=== PATIENT | female | born 1945 | race Caucasian/White ===

== ENCOUNTER 2021-05-10 07:55 | Outpatient (CLI) | payer MEDICARE, SELFPAY ==
--- NOTE | ~2021-05-10 | MM_ITS ---
EXAMINATION: MM screening saeid BI w jaimee HISTORY: Screening TECHNIQUE: Craniocaudal and mediolateral oblique 3-D tomosynthesis images were obtained and synthetic 2-D images were generated. CAD analysis was submitted and interpreted. COMPARISON: Comparison to multiple prior studies sequentially, with oldest reviewed study dated 11/20. BREAST PARENCHYMAL COMPOSITION: There are scattered areas of fibroglandular density. FINDINGS: There is no evidence of suspicious mass, calcification, or architectural distortion to sugg est malignancy in either breast. There has been no suspicious interval change. IMPRESSION: 1. No mammographic evidence of malignancy. 2. Recommend routine screening mammography in one year. BI-RADS Category 1: Negative Reviewed, dictated and finalized at location A.
--- NOTE | ~2021-05-10 | DEXA_ITS ---
Bone Density Report Name: Jacque Echeverria Age: 75 Sex: Female Ethnicity: White Date of : 1945 Indication: postmenopausal osteoporosis; height loss; cancer; Referring Provider: DONALDO BOWMAN Study: Bone densitometry was performed. Exam Date: May 10, 2021 Accession number: [id number] Bone Density: Region BMD T-score Z-score Classification AP Spine (L1, L2, L3) 0.815 -1.8 0.4 Osteopenia Femoral Neck (Left) 0.541 -2.8 -0.8 Osteoporosis Total Hip (Left) 0.721 -1.8 -0.1 Osteopenia Total Hip Bilateral Avg 0.706 -1.9 -0.3 Osteopenia Femoral Neck (Right) 0.489 -3.2 -1.3 Osteoporosis Total Hip (Right) 0.690 -2.1 -0.4 Osteopenia World Health Organization criteria for BMD impression classify patients as: Normal (T-score at or above -1.0), Osteopenia (T-score between -1.0 and -2.5), or Osteoporosis (T-score at or below -2.5). 10-year Fracture Risk: FRAX not reported because: Some T-score for Spine Total or Hip Total or Femoral Neck at or below -2.5 Previous Exams: Region Exam Age BMD T-score BMD Change BMD Change Date g/cm2 vs Baseline vs Previous AP Spine(L1, L2, L3) 05/10/2021 75 0.815 -1.8 0.136(20.1%)# 0.077(10.5%)* 12/12/2015 70 0.738 -2.5 0.059(8.7%)# 0.107(16.9%)# 12/08/2009 64 0.631 -3.5 -0.047(-7.0%)* -0.047(-7.0%)* 10/10/2004 58 0.679 -3.1 Total Hip(Left) 05/10/2021 75 0.721 -1.8 -0.107(-12.9%) -0.066(-8.4%)* 12/12/2015 70 0.787 -1.3 -0.040(-4.9%)# 0.003(0.4%)# 12/08/2009 64 0.784 -1.3 -0.044(-5.3%)* -0.044(-5.3%)* 10/10/2004 58 0.828 -0.9 Total Hip(Right) 05/10/2021 75 0.690 -2.1 -0.131(-16.0%) -0.078(-10.2%) 12/12/2015 70 0.769 -1.4 -0.053(-6.4%)# 0.014(1.9%)# 12/08/2009 64 0.755 -1.5 -0.067(-8.2%)* -0.067(-8.2%)* 10/10/2004 58 0.822 -1.0 *Denotes significance at 95% confidence level, LSC for AP Spine = 0.022 g/cm2, LSC for Total Hip = 0.027 g/cm2 Clinical Information Provided by Patient: Has used the following medications: Vitamin D, Calcium Has the following medical conditions: Cancer Patient maximum height was 62.5 Menopause Age: 50 No regular weight bearing exercise Does not regularly consume dairy products Drinks caffeinated beverages Onset of menses at age 13 Number of children 2 Impression: The patient has osteoporosis, based on the Right Femoral Neck T-score. The BMD for the Total Hip(Left) decreased, changing by -8.4% since the last DXA exam. The B
== END 2021-05-10 07:56 | disposition home or self-care (01) ==
LOC: ANHIMG 07:59
PROVIDERS: PCP Family Medicine; Visit Provider Family Medicine
DX: Z12.31 Encounter for screening mammogram for malignant neoplasm of breast (principal); Z78.0 Asymptomatic menopausal state; M81.0 Age-related osteoporosis without current pathological fracture
CPT/HCPCS: 77063; 77067; 77080

== ENCOUNTER 2021-10-19 11:44 | Outpatient (CLI) | payer MEDICARE, SELFPAY ==
--- NOTE | ~2021-10-19 | CT_ITS ---
EXAMINATION:CT lung screening DATE: 10/19/2021 12:19 INDICATION: Personal history of tobacco dependence. Smoker who quit 11 years ago with 30 pack year hi story. TECHNIQUE: Computed tomography (CT) of the chest was performed without intravenous contrast. Automate d exposure control and iterative reconstruction technique were employed. The dose-length product (DLP ) was 95.44 mGy-cm. COMPARISON: CT abdomen 04/18/2008 FINDINGS: There is moderate emphysema. There are widespread peripheral septal thickening, likely overhead door technician sony. No pleural effusion. The heart size is normal. There are coronary artery calcifications. No iris cardial effusion. There are surgical clips around the gastroesophageal junction. Calcifications in th e spleen are consistent with old granulomatous disease. There is severe thoracic spondylosis. There a re multiple chronic vertebral body fractures. IMPRESSION: 1. Lung-RADS category 2: Benign appearance or behavior. Continue annual screening with noncontrast lo w-dose chest CT in 12 months. Reviewed, dictated and finalized at location A. IMPRESSION: 1. Lung-RADS category 2: Benign appearance or behavior. Continue annual screeni ng with noncontrast low-dose chest CT in 12 months.
== END 2021-10-19 11:45 | disposition home or self-care (01) ==
PROVIDERS: PCP Family Medicine; Visit Provider Family Medicine
DX: Z12.2 Encounter for screening for malignant neoplasm of respiratory organs (principal); Z87.891 Personal history of nicotine dependence
CPT/HCPCS: 71271

== ENCOUNTER 2022-10-08 10:37 | Outpatient (CLI) | payer MEDICARE, SELFPAY ==
[2022-10-08 10:48] LABS: Basophils Absolute Auto 0.1 K/mm3 (0.0-0.1); Basophils Percent Auto 1.2 % (0.2-1.2); Eosinophils Absolute Auto 0.1 K/mm3 (0-0.3); Eosinophils Percent Auto 1.9 % (0-4.4); Hematocrit 38.4 % (37.0-47.0); Hemoglobin 12.7 g/dL (12.0-15.0); Immature Granulocyte Absolute 0.03 K/mm3 (0.00-0.031); Immature Granulocyte Percent A 0.5 % (0-0.5); Lymphocytes Absolute Auto 1.14 K/mm3 (0.9-3.2); Lymphocytes Percent Auto 19.7 % (18.3-44.2); Mean Corpuscular HGB Conc 33.1 g/dl (32-36); Mean Corpuscular Hemoglobin 29.1 pg (26-34); Mean Corpuscular Volume 87.9 fl (80-100); Mean Platelet Volume 8.7 fl (7.4-10.4); Monocytes Absolute Auto 0.3 K/mm3 (0.1-0.6); Monocytes Percent Auto 4.5 % (2.6-8.5); Neutrophils Absolute Auto 4.2 K/mm3 (1.3-6.7); Neutrophils Percent Auto 72.2 % (45.5-73.1); Platelet Count Result 428 k/mm3 (150-375); Red Blood Count 4.37 M/mm3 (4.2-5.4); Red Cell Distribution Width 13.2 % (11.5-14.5); White Blood Count 5.8 K/mm3 (4.5-10.0)
== END 2022-10-08 10:38 | disposition home or self-care (01) ==
PROVIDERS: PCP Family Medicine; Visit Provider Nurse Practitioner Gerontology
DX: D75.839 Thrombocytosis, unspecified (principal)
CPT/HCPCS: 36415; 85025

== ENCOUNTER 2023-04-07 07:15 | Outpatient (CLI) | payer MEDICARE, SELFPAY ==
[2023-04-07 07:40] LABS: Basophils Absolute Auto 0.1 K/mm3 (0.0-0.1); Basophils Percent Auto 2.1 % (0.2-1.2); Eosinophils Absolute Auto 0.1 K/mm3 (0-0.3); Hematocrit 35.9 % (37.0-47.0); Hemoglobin 11.9 g/dL (12.0-15.0); Immature Granulocyte Absolute 0.02 K/mm3 (0.00-0.031); Immature Granulocyte Percent A 0.5 % (0-0.5); Lymphocytes Absolute Auto 1.07 K/mm3 (0.9-3.2); Lymphocytes Percent Auto 24.5 % (18.3-44.2); Mean Corpuscular HGB Conc 33.1 g/dl (32-36); Mean Corpuscular Hemoglobin 29.9 pg (26-34); Mean Corpuscular Volume 90.2 fl (80-100); Mean Platelet Volume 8.6 fl (7.4-10.4); Monocytes Absolute Auto 0.5 K/mm3 (0.1-0.6); Monocytes Percent Auto 10.5 % (2.6-8.5); Neutrophils Absolute Auto 2.6 K/mm3 (1.3-6.7); Neutrophils Percent Auto 59.4 % (45.5-73.1); Platelet Count Result 425 k/mm3 (150-375); Red Blood Count 3.98 M/mm3 (4.2-5.4); Red Cell Distribution Width 12.7 % (11.5-14.5); White Blood Count 4.4 K/mm3 (4.5-10.0)
[2023-04-07 07:51] LABS: Alanine Aminotransferase 16 U/L (6-35); Albumin Level 3.9 g/dL (3.5-5.1); Alkaline Phosphatase 43 U/L (38-126); Anion Gap 9 mmol/L (8-16); Aspartate Amino Transferase 28 U/L (14-36); Bilirubin,Total 0.4 mg/dL (0.2-1.3); Blood Urea Nitrogen 14 mg/dL (7-17); Calcium 8.6 mg/dL (8.4-10.2); Carbon Dioxide 28 mmol/L (22-30); Chloride 93 mmol/L (98-107); Cholesterol 188 mg/dL (0-200); Estimated Glomerular Filt Rate > 60; Glucose 99 mg/dL (65-110); HDL Direct 72 mg/dL; Potassium 4.2 mmol/L (3.4-5.0); Sodium 130 mmol/L (137-145); Triglycerides 67 mg/dL (<150)
[2023-04-07 08:00] LABS: Hemoglobin A1C 5.8 % (<5.7)
[2023-04-07 08:02] LABS: LDL Cholesterol Direct 85 mg/dL
== END 2023-04-07 07:16 | disposition home or self-care (01) ==
LOC: ANHLAB 07:16
PROVIDERS: PCP Family Medicine; Visit Provider Physician Assistant
DX: I25.10 Atherosclerotic heart disease of native coronary artery without angina pectoris (principal); I70.0 Atherosclerosis of aorta; E11.9 Type 2 diabetes mellitus without complications; E03.9 Hypothyroidism, unspecified; D75.839 Thrombocytosis, unspecified
CPT/HCPCS: 36415; 80053; 80061; 83036; 84443; 85025

== ENCOUNTER 2023-07-17 15:36 | Emergency (ER) | payer MEDICARE, SELFPAY ==
[2023-07-17 15:51] VITALS: BP 120/61; PULSE 102; RESP 18; TEMP 36.6; O2SAT 99
--- NOTE | 2023-07-17 16:06 | ED.EAR ---
HPI - Ear Problem General Chief complaint: Ear Stated complaint: fever,headache,painful right ear Time Seen by Provider: 07/17/23 16:06 Source: patient Mode of arrival: ambulatory Limitations: no limitations History of Present Illness HPI Narrative: 77-year-old female presents with complaint of right ear pain for 2 days. Reports that pain is intermittent like shocks of electricity . Patient reports congestion, cough, runny nose for 4 days. Afebrile. No chest pain or shortness of breath. Patient taking Zyrtec to treat symptoms. All systems reviewed and negative except as noted above. Related Data Allergies Allergy/AdvReac Type Severity Reaction Status Date / Time Hhyendj-CEO-QoF Reductase Allergy Unknown myalgia Verified 07/17/23 16:13 Inhibitor [Sxgpqre-Enl-Mmh Reductase Inhibitor] Review of Systems Review of Systems: CONSTITUTIONAL: Denies fever, chills, or sweats. EYES: Denies visual changes, redness, or discharge. ENT: Reports rhinorrhea, congestion,, right ear pain. Denies sore throat CARDIOVASCULAR: Denies chest pain, palpitations, or edema. RESPIRATORY: Denies cough or dyspnea. GASTROINTESTINAL: Denies abdominal pain, nausea, vomiting, or diarrhea. GENITOURINARY: Denies dysuria or hematuria. SKIN: Denies rash or itching. MUSCULOSKELETAL: Denies back pain, joint pain, or myalgia. NEUROLOGIC: Denies headache, numbness, or weakness. PSYCHIATRIC: Denies anxiety or depression. All other systems reviewed are negative, except as documented in HPI. [facility] Past Medical History Medical History Abdominal aortic atherosclerosis Acute non-recurrent maxillary sinusitis Acute pain Adult hypothyroidism Age-related osteoporosis without current pathological fracture Atypical chest pain Benign paroxysmal positional vertigo Benign reactive hypertension Breast cancer screening Chronic right shoulder pain Controlled diabetes mellitus type II without complication Eczema of both hands Essential (primary) hypertension Familial hyperlipoproteinemia type IIb PIEDAD (generalized anxiety disorder) Hypothyroidism, unspecified Infected abrasion of great toe of right foot Left sided sciatica Low back pain Lumbar spondylosis Mixed hyperlipidemia Nicotine dependence, unspecified, in remission Nicotine dependence, unspecified, uncomplicated Osteoporosis Personal history of tobacco use Postmenopausal Psoriasis Sprain of right wrist Thoracic aorta atherosclerosis Type 2 diabetes mellitus without complications Family History Family History Mother Family history of chronic obstructive pulmonary disease, Onset Age: 80 Patient's mother is Father Family history of malignant neoplasm of esophagus, Onset Age: 75 Patient's father is Social History Social History Social History: Smoking packs per day: 1 Smoking cigarettes per day: 20.0 Smoking status: Former smoker Tobacco type: cigarettes Second hand tobacco smoke exposure: No Smoking end date: 08/10/10 Alcohol intake: current Alcohol use details: Rarely Substance use: never Substance use type: does not use Lack of Transportation: No Lack of Food: Never True Current Housing: I Have Housing Concerned About Future Housing: No Difficulty Paying Gas/Electric Bills: No Difficulty Paying for Meds: No Currently Unemployed: YES Education: Decline to Answer Difficulty w/ Childcare or Family Care: No Living arrangements: with family Occupation/Education: retired Gender identity (if verbalized by the patient): Female Sexual Orientation (if Verbalized by the Patient): Straight or Heterosexual Comments At time of signature, agree with nursing past medical, surgical, social and family history. There is no re
== END 2023-07-17 16:22 | disposition home or self-care (01) ==
PROVIDERS: Emergency Provider Nurse Practitioner Family; PCP Family Medicine
DX: J06.9 Acute upper respiratory infection, unspecified (principal); H65.01 Acute serous otitis media, right ear; I10 Essential (primary) hypertension; E11.9 Type 2 diabetes mellitus without complications; E03.9 Hypothyroidism, unspecified; E78.2 Mixed hyperlipidemia; Z87.891 Personal history of nicotine dependence
CPT/HCPCS: 99213; G0463

== ENCOUNTER 2023-09-04 06:55 | Outpatient (CLI) | payer MEDICARE, SELFPAY ==
[2023-09-04 07:20] LABS: Basophils Absolute Auto 0.1 K/mm3 (0.0-0.1); Basophils Percent Auto 1.8 % (0.2-1.2); Eosinophils Absolute Auto 0.2 K/mm3 (0-0.3); Hematocrit 37.4 % (37.0-47.0); Hemoglobin 12.6 g/dL (12.0-15.0); Immature Granulocyte Absolute 0.01 K/mm3 (0.00-0.031); Immature Granulocyte Percent A 0.2 % (0-0.5); Lymphocytes Absolute Auto 1.02 K/mm3 (0.9-3.2); Lymphocytes Percent Auto 20.5 % (18.3-44.2); Mean Corpuscular HGB Conc 33.7 g/dl (32-36); Mean Corpuscular Hemoglobin 30.7 pg (26-34); Mean Corpuscular Volume 91.2 fl (80-100); Mean Platelet Volume 8.8 fl (7.4-10.4); Monocytes Absolute Auto 0.4 K/mm3 (0.1-0.6); Monocytes Percent Auto 7.8 % (2.6-8.5); Neutrophils Absolute Auto 3.3 K/mm3 (1.3-6.7); Neutrophils Percent Auto 66.7 % (45.5-73.1); Platelet Count Result 445 k/mm3 (150-375)
[2023-09-04 07:31] LABS: Alanine Aminotransferase 14 U/L (6-35); Albumin Level 3.9 g/dL (3.5-5.1); Alkaline Phosphatase 44 U/L (38-126); Anion Gap 6 mmol/L (8-16); Aspartate Amino Transferase 27 U/L (14-36); Bilirubin,Total 0.6 mg/dL (0.2-1.3); Blood Urea Nitrogen 16 mg/dL (7-17); Calcium 9.9 mg/dL (8.4-10.2); Carbon Dioxide 28 mmol/L (22-30); Chloride 102 mmol/L (98-107); Estimated Glomerular Filt Rate > 60; Glucose 110 mg/dL (65-110); Sodium 136 mmol/L (137-145)
[2023-09-04 08:40] LABS: Free T4 Free Thyroxine Reflex 1.33 ng/dL (0.78-2.19)
[2023-09-04 09:33] LABS: Total Triiodothyronine (T3) 0.89 NG/ML (0.97-1.69)
== END 2023-09-04 06:56 | disposition home or self-care (01) ==
LOC: ANHLAB 06:59
PROVIDERS: PCP Family Medicine; Visit Provider Physician Assistant
DX: D64.9 Anemia, unspecified (principal); E03.9 Hypothyroidism, unspecified; E87.1 Hypo-osmolality and hyponatremia
CPT/HCPCS: 36415; 80053; 84439; 84443; 84480; 85025

== ENCOUNTER 2023-10-08 08:49 | Outpatient (CLI) | payer MEDICARE, SELFPAY ==
--- NOTE | ~2023-10-08 | XR_ITS ---
Clinical Indication: Cough PA and lateral views of the chest: Comparison: 01/26/2019 Findings: There is focal area of haziness in the right upper lobe.. Cardiomediastinal silhouette is within normal limits. Bones and soft tissues are unremarkable. Impression: Focal hazy airspace disease right upper lobe, which could reflect pneumonia. Reviewed, dictated and finalized at location . COORDINATOR Impression: Focal hazy airspace disease right upper lobe, which could reflect pneumonia.
== END 2023-10-08 08:50 | disposition home or self-care (01) ==
PROVIDERS: PCP Family Medicine; Visit Provider Family Medicine
DX: R05.9 Cough, unspecified (principal); R91.8 Other nonspecific abnormal finding of lung field
CPT/HCPCS: 71046

== ENCOUNTER 2023-11-24 10:55 | Outpatient (CLI) | payer MEDICARE, SELFPAY ==
[2023-11-24 12:06] LABS: Free T4 Free Thyroxine 1.64 ng/mL (0.78-2.19)
== END 2023-11-24 10:56 | disposition home or self-care (01) ==
LOC: ANHLAB 11:00
PROVIDERS: PCP Family Medicine; Visit Provider Physician Assistant
DX: E07.9 Disorder of thyroid, unspecified (principal)
CPT/HCPCS: 36415; 84439; 84443

== ENCOUNTER 2024-02-19 12:30 | Outpatient (RCR) | payer MEDICARE, SELFPAY ==
--- NOTE | 2024-01-18 17:28 | OPREHPOC ---
Outpatient Therapy Plan of Care This is a Multidisciplinary Plan of Care that may contain components documented by all disciplines (PT, OT, and ST.) PT Problem 1 PT Problem #1 Knowledge Deficit PT Goal 1 Goal Pt will demo HEPs to improve posture, core and back, BLE strength, lumbar stabilizations independently. Target Visit 10 PT Problem 2 PT Problem #2 Impaired Balance PT Goal 1 Goal Pt will demo Tinetti Assessment score of 21/28 and BAKER balance test of 42/56 or more to reduce risk for falls. Target Visit 10 PT Goal 2 Goal Pt will demo 5x STS within 15 sec or less indicating improved balance and strength and safe indep ambulation. PT Problem 3 PT Problem #3 Impaired Vestibular Syste PT Goal 1 Goal Pt will report significant reduction in symptoms of dizziness with head movements Target Visit 10 PT Problem 4 PT Problem #4 Impaired Strength PT Goal 1 Goal Pt will demo 5/5 strength to BLEs, 4/5 abdominal and back strength
--- NOTE | 2024-01-18 17:28 | PTOPEVAL1 ---
Assessment and note entered by Gely Whiting, PT Evaluation Information Assessment Status Evaluation Diagnosis abnormalities of gait and mobility Onset gradual, chronic Therapy Considerations pain, weakness, hypomobility, balance and vestibular weakness symptoms Subjective Information Pt reports have been having chronic back pains and sciatic pain L > R; states pain increases with prolonged standing position, sitting does not bother her. Uses heat to relieve the pain, lying in supine position. Reports feeling dizzy when turning around in [place] and turning head, light- headedness with sudden or quick changes in position. Pt states has been doing more due to patient's husbands worsening dementia. Reported Pain Level Pain Score 4: Self Report Assessment PT Clinical Summary Pt presents with weakness, joint mobility deficits , balance deficits, gait impairments and vestibular weakness with positive R Head Thrust Maneuver test; pt reports symptoms consistent with Orthostatic Hypotension, however does not demonstrate significant fluctuations of BP measurements at this time. She will greatly benefit from skilled PT to improve general strength and reduce risk for falls. Plan of Care Interventions Gait Training,Manual Therapy,Neuro Re-education, Patient/Caregiver Educati,Therapeutic Activities, Therapeutic Exercise,Other Other Interventions vestibular rehab PT Services Indicated Yes Treatment Frequency and 3x/wk x 10 visits Duration These treatments will address the objective and functional deficits as defined above. The patient will be advanced safely and appropriately in order for the patient to progress towards his/her prior level of function. Additional exercises will be introduced and as well as a comprehensive home exercise program upon discharge, if needed, ?to ensure carryover of functional gains achieved in the clinic. This treatment plan has been reviewed and agreement upon by the patient.
--- NOTE | 2024-01-29 11:45 | PCPTNOTE ---
Pt NS due to forgetting appt.
--- NOTE | 2024-02-19 13:07 | PTOPDC ---
Assessment and note entered by Leilani Prince, PT Discharge Report Assessment Status Discharge Diagnosis abnormalities of gait and mobility Onset gradual, chronic Subjective Information since coming for therapy, am not as dizzy, but do have some dizzy spells; usually have dizziness when tired; walking better- able to make it through the store easier and faster; doing the exercises at home; ready to be done with therapy. Reported Pain Level Pain Score 0: Self Report Assessment PT Clinical Summary Jacque has received 9 PT sessions. Compared to the initial evaluation: she has improved in all areas: LE strength, balance with Mckeon, Tinetti and 5 reps sit/stand are all WNL; dizziness has decreased with only slight symptoms, mostly when tired, at the end of the day; education completed for HEP and safety with dizziness. The goals were achieved. Discharge from PT. She is to continue with her home exercises. Plan of Care PT Services Indicated No
== END 2024-02-19 14:53 | disposition home or self-care (01) ==
LOC: ANHPT 12:30
PROVIDERS: PCP Family Medicine; Visit Provider Family Medicine
DX: R26.89 Other abnormalities of gait and mobility (principal)
CPT/HCPCS: 97110; 97112; 97161; 97530

== ENCOUNTER 2024-11-23 16:26 | Outpatient (CLI) | payer MEDICARE, SELFPAY ==
--- NOTE | ~2024-11-23 | CT_ITS ---
CT Scan of the Chest without Contrast: Clinical Indication: Lung cancer screening, nicotine dependence Technique: Contiguous sections were acquired throughout the chest without intravenous contrast. Dose reduction technique was used on this scan by utilizing automated exposure control and iterative recon struction technique. The dose-length product (DLP) was 77.96 mGy-cm. COMPARISON: 10/19/2021 Findings: There is no evidence of any significant mediastinal, hilar or axillary lymphadenopathy. The mediastin al soft tissues appear normal. There is no evidence of pleural or pericardial effusion. There is advanced emphysema. There are patchy areas of increased chronic interstitial change peripher ally. No discrete pulmonary nodule clearly evident. Images through the upper abdomen reveal no abnormalities. Stable compression fractures of T11, T12, L 1. Impression: Lung RADS 2: Benign appearance 12 month follow-up screening CT advised. Advanced emphysema and worsening chronic interstitial disease. Reviewed, dictated and finalized at [facility]. Impression: Lung RADS 2: Benign appearance 12 month follow-up screening CT advised. Advanced emphysema and worsening chronic interstitial disease.
--- OUTSIDE RECORDS SUMMARY | 2024-11-23 16:55 | XMS_ITS | Clinical Summary ---
Author Organization [facility] Address [address] [place] [address] Care Team Providers Care Geoscience Technician Name Role Phone Unavailable Primary Care Provider Unavailabl e Social History Tobacco Use Types Packs/Day Years Used Date Smoking Tobacco: Never Assessed Comments Unknown Sex and Gender Information Value Date Recorded Sex Assigned at Not on file Legal Sex Female 4:31 PM CDT Gender Identity Not on file Sexual Orientation Not on file Plan of Treatment Health Maintenance Due Date Last Done Comments Hepatitis C 12/03/1965 DTaP, Tdap and Td Vaccines ( 1 - Tdap) 12/03/1966 Zoster Vaccines (1 of 2) 12/03/1997 Dexa Scan (General) 12/03/2012 Pneumococcal Vaccine: 50+ Ye ars (1 of 1 - PCV) 12/03/2012 RSV Immunization or 60+ Years (1 - 1-dose 75+ series) 12/03/2022 COVID-19 Vaccine (2023-2 5 season) 2024 Meningococcal B Vaccine Aged Out No l onger eligible based on patient's age to complete this topic Meningococcal Vaccine Aged Out No sanya rachel eligible based on patient's age to complete this topic RSV Immunizations Under 20 Months Aged Out No longer eligible based on patient's age to complete this topic
--- OUTSIDE RECORDS SUMMARY | 2024-11-23 16:55 | XMS_ITS | Continuity of Care Document ---
Author Organization [facility] [place] [address] [place] [address] [place] [address] Phone Care Team Providers Care Flexo Press Operator Name Role Phone Juma Glasgow Unavailable Unavailable Procedures Procedure Date Eye Exam, New Patient Ophthalmoscopy Advance Directives Directive Yes / No Effective Date File Name No Information Encounters Encounter Description Practice Location Reason(s) For Visit Diagnoses Date Provider Providers Copied on Encounter [facility], [address] [place] [address] [address], [place], [place], [id number], tel:[phone] [facility] No Information Pee Dennison. [address] [place], [address], [place]. tel:[phone] Referring Provider: Juma Frank, [address] [place], [place], [facility]. tel:[phone] Family History Family Member Type Diagnosis Age At Onset No Information Payers Payer name Insurance type Covered libertarian ID Authoriza tion(s) No Information Social History [...]
== END 2024-11-23 16:27 | disposition home or self-care (01) ==
PROVIDERS: PCP Family Medicine; Visit Provider Physician Assistant
DX: Z12.2 Encounter for screening for malignant neoplasm of respiratory organs (principal); Z87.891 Personal history of nicotine dependence
CPT/HCPCS: 71271

== ENCOUNTER 2024-12-05 06:36 | Outpatient (CLI) | payer MEDICARE, SELFPAY ==
--- OUTSIDE RECORDS SUMMARY | 2024-12-05 06:40 | XMS_ITS | Clinical Summary ---
Author Organization [facility] Address [address] [place] [address] Care Team Providers Care Commercial Pest Control Representative Name Role Phone Unavailable Primary Care Provider [...] Td Vaccines ( 1 - Tdap) 12/03/1966 Pneumococcal Vaccine: 50+ Ye ars (1 of 1 - PCV) 12/03/1997 Zoster Vaccines (1 of 2) 12/03/1997 Dexa Scan (General) 12/03/2012 RSV Immunization or 60+ Years (1 [...]
--- OUTSIDE RECORDS SUMMARY | 2024-12-05 06:40 | XMS_ITS | Continuity of Care Document ---
Author Organization [facility] Address [address] [place] [address] [place] [address] Phone Care Team Providers Care Well Puller Head Name Role Phone Juma Glasgow Unavailable Unavailable Procedures Procedure Date Eye Exam, New Patient Ophthalmoscopy Advance Directives Directive Yes / No Effective Date File Name No Information Encounters Encounter Description Practice Location Reason(s) For Visit Diagnoses Date Provider Providers Copied on Encounter [facility], [address] [place] [address] [address], [place], [place], [id number], tel:[phone] [facility] No Information Pee Dennison. [address] [place], [address], [place]. tel:[phone] Referring Provider: Juma Frank, [address] [place], [place], [facility]. tel:[phone] Family History Family Member Type Diagnosis Age At Onset No Information Payers Payer name Insurance type Covered democrat ID Authoriza tion(s) No Information Social History [...]
[2024-12-05 07:52] LABS: Hematocrit 33.9 % (37.0-47.0); Hemoglobin 11.1 g/dL (12.0-15.0); Mean Corpuscular HGB Conc 32.7 g/dl (32-36); Mean Corpuscular Hemoglobin 29.8 pg (26-34); Mean Corpuscular Volume 90.9 fl (80-100); Mean Platelet Volume 9.5 fl (7.4-10.4); Platelet Count Result 343 k/mm3 (150-375); Red Blood Count 3.73 M/mm3 (4.2-5.4); Red Cell Distribution Width 12.9 % (11.5-14.5); White Blood Count 4.7 K/mm3 (4.5-10.0)
[2024-12-05 08:19] LABS: Alanine Aminotransferase 18 U/L (6-35); Albumin Level 3.8 g/dL (3.5-5.1); Alkaline Phosphatase 57 U/L (38-126); Anion Gap 5 mmol/L (4-12); Aspartate Amino Transferase 31 U/L (14-36); Bilirubin,Total 0.5 mg/dL (0.2-1.3); Blood Urea Nitrogen 13 mg/dL (7-17); Carbon Dioxide 29 mmol/L (22-30); Chloride 99 mmol/L (98-107); Cholesterol 182 mg/dL (0-200); Estimated Glomerular Filt Rate > 60; Glucose 118 mg/dL (65-110); HDL Direct 84 mg/dL; Potassium 3.6 mmol/L (3.4-5.0); Sodium 133 mmol/L (137-145); Triglycerides 52 mg/dL (<150)
[2024-12-05 08:32] LABS: LDL Cholesterol Direct 67 mg/dL
[2024-12-05 08:40] LABS: Free T4 Free Thyroxine 1.75 ng/dL (0.78-2.19)
[2024-12-05 08:52] LABS: Thyroid Stimulating Hormone 0.024 uIU/mL (0.465-4.680)
== END 2024-12-05 06:37 | disposition home or self-care (01) ==
LOC: ANHLAB 06:38
PROVIDERS: PCP Family Medicine; Visit Provider Physician Assistant
DX: E07.9 Disorder of thyroid, unspecified (principal); D64.9 Anemia, unspecified; E11.9 Type 2 diabetes mellitus without complications; I25.10 Atherosclerotic heart disease of native coronary artery without angina pectoris; E03.9 Hypothyroidism, unspecified; I10 Essential (primary) hypertension
CPT/HCPCS: 36415; 80053; 80061; 83036; 84439; 84443; 85027

== ENCOUNTER 2025-01-25 08:25 | Outpatient (CLI) | payer MEDICARE, SELFPAY ==
--- OUTSIDE RECORDS SUMMARY | 2025-01-25 08:43 | XMS_ITS | Continuity of Care Document ---
Author Organization [facility] Address [address] [place] [address] [place] [address] Phone Care Team Providers Care Spa Manager Name Role Phone Juma Glasgow Unavailable Unavailable Procedures Procedure Date Eye Exam, New Patient Ophthalmoscopy Advance Directives Directive Yes / No Effective Date File Name No Information Encounters Encounter Description Practice Location Reason(s) For Visit Diagnoses Date Provider Providers Copied on Encounter [facility], [address] [place] [address] [address], [place], [place], [id number], tel:[phone] [facility] No Information Pee Dennison. [address] [place], [address], [place]. tel:[phone] Referring Provider: Juma Frank, [address] [place], [place], [facility]. tel:[phone] Family History Family Member Type Diagnosis Age At Onset No Information Payers Payer name Insurance type Covered republican ID Authoriza tion(s) No Information Social History [...]
[2025-01-25 09:57] LABS: Free T4 Free Thyroxine 1.62 ng/dL (0.78-2.19)
[2025-01-25 10:10] LABS: Thyroid Stimulating Hormone 0.022 uIU/mL (0.465-4.680)
== END 2025-01-25 08:26 | disposition home or self-care (01) ==
PROVIDERS: PCP Family Medicine; Visit Provider Student in an Organized Health Care Education/Training Program
DX: E03.9 Hypothyroidism, unspecified (principal)
CPT/HCPCS: 36415; 84439; 84443

== ENCOUNTER 2025-02-07 14:09 | Emergency (ER) | payer MEDICARE, SELFPAY ==
--- NOTE | ~2025-02-07 | XR_ITS ---
Right Knee Technique: AP, lateral, and oblique views were obtained. Clinical History: Pain Findings: No fracture or dislocation is seen. Osseous alignment is anatomic. Joint spaces are preserv ed without degenerative or erosive change. Soft tissues are unremarkable. No joint effusion is seen. Impression: Unremarkable right knee radiographs. Reviewed, dictated and finalized at location . Impression: Unremarkable right knee radiographs.
--- OUTSIDE RECORDS SUMMARY | 2025-02-07 14:14 | XMS_ITS | Clinical Summary ---
Author Organization [facility] Address [address] [place] [address] Care Team Providers Care Fire Battalion Chief Name Role Phone Unavailable Primary Care Provider [...]
--- OUTSIDE RECORDS SUMMARY | 2025-02-07 14:14 | XMS_ITS | Continuity of Care Document ---
Author Organization [facility] [place] [address] [place] [address] [place] [address] Phone Care Team Providers Care Veterinary Laboratory Diagnostician Name Role Phone Juma Glasgow Unavailable Unavailable Procedures Procedure Date Eye Exam, New Patient Ophthalmoscopy Advance Directives Directive Yes / No Effective Date File Name No Information Encounters Encounter Description Practice Location Reason(s) For Visit Diagnoses Date Provider Providers Copied on Encounter [facility], [address] [place] [address] [address], [place], [place], [id number], tel:[phone] [facility] No Information Pee Dennison. [address] [place], [address], [place]. tel:[phone] Referring Provider: Juma Frank, [address] [place], [place], [facility]. tel:[phone] Family History Family Member Type Diagnosis Age [...]
--- OUTSIDE RECORDS SUMMARY | 2025-02-07 14:19 | XMS_ITS | Continuity of Care Document ---
Author Organization [facility] Address [address] [place] [address] [place] [address] Phone Care Team Providers Care Boiling House Oiler Name Role Phone Juma Glasgow Unavailable Unavailable Procedures Procedure Date Eye Exam, New Patient Ophthalmoscopy Advance Directives Directive Yes / No Effective Date File Name No Information Encounters Encounter Description Practice Location Reason(s) For Visit Diagnoses Date Provider Providers Copied on Encounter [facility], [address] [place] [address] [address], [place], [place], [id number], tel:[phone] [facility] No Information Pee Dennison. [address] [place], [address], [place]. tel:[phone] Referring Provider: Juma Frank, [address] [place], [place], [facility]. tel:[phone] Family History Family Member Type Diagnosis Age At Onset No Information Payers Payer name Insurance type Covered constitution party ID Authoriza tion(s) No Information Social [...]
[2025-02-07 14:26] VITALS: BP 127/56; PULSE 85; RESP 16; TEMP 36.5; O2SAT 98
--- NOTE | 2025-02-07 14:40 | ED.GENADULT ---
HPI - General Adult General Chief complaint: Extremity Injury, Lower Stated complaint: Yesterday - fell right knee/leg swollen/pain History of Present Illness HPI narrative: Jacque Echeverria is a 79 y/o female who presents with and daugther with complaints of right knee pain. She explains she was tripped over the dog getting his food yesterday and fell onto her right knee. Denies hitting her head/ no LOC denies hip pain. She was able to get herself back up after the fall. She doesn't usually use a cane but had one at home that she has been using since it is painful to bend and extend her knee. She denies any pain to her knee while she is sitting at rest. Related Data Allergies Allergy/AdvReac Type Severity Reaction Status Date / Time Htttneu-BVU-DwK Reductase Allergy Unknown myalgia Verified 02/07/25 14:12 Inhibitor (Mwrnmxg-Piz-Atd Reductase Inhibitor) Review of Systems Review of Systems: All systems reviewed & are unremarkable except as noted in HPI and below PMFSH Past Medical History Medical History Psoriasis Type 2 diabetes mellitus without complications Thoracic aorta atherosclerosis Sprain of right wrist Postmenopausal Nicotine dependence, unspecified, uncomplicated Nicotine dependence, unspecified, in remission Mixed hyperlipidemia Lumbar spondylosis Low back pain Left sided sciatica Hypothyroidism, unspecified Essential (primary) hypertension Eczema of both hands Chronic right shoulder pain Breast cancer screening Atypical chest pain Age-related osteoporosis without current pathological fracture Acute pain Acute non-recurrent maxillary sinusitis Infected abrasion of great toe of right foot Personal history of tobacco use Benign paroxysmal positional vertigo PIEDAD (generalized anxiety disorder) Adult hypothyroidism Abdominal aortic atherosclerosis Familial hyperlipoproteinemia type IIb Benign reactive hypertension Osteoporosis Controlled diabetes mellitus type II without complication Surgical History Surgical History H/O vagotomy H/O pyloroplasty Family History Family History Mother Family history of chronic obstructive pulmonary disease, Onset Age: 80 Patient's mother is Father Family history of malignant neoplasm of esophagus, Onset Age: 75 Social History Social History Social History: Smoking packs per day: 1 Smoking cigarettes per day: 20.0 Smoking status: Former smoker Tobacco type: cigarettes Second hand tobacco smoke exposure: No Smoking end date: 08/10/10 Alcohol intake: current Alcohol use details: Rarely Substance use: never Substance use type: does not use Do You Feel Safe in your Home?: Yes Lack of Transportation: No Lack of Food: Never True Current Housing: I Have Housing Concerned About Future Housing: No Difficulty Paying Gas/Electric Bills: No Difficulty Paying for Meds: No Currently Unemployed: YES Education: Decline to Answer Difficulty w/ Childcare or Family Care: No Living arrangements: with family Occupation/Education: retired Gender identity (if verbalized by the patient): Female Sexual Orientation (if Verbalized by the Patient): Straight or Heterosexual Exam Narrative: GENERAL: Well-appearing, well-nourished, and in no acute distress. HEAD: Normocephalic, atraumatic. EYES: PERRLA and EOMI. ENT: Nares clear, no rhinorrhea or epistaxis. Mucous membranes moist. Oropharynx without tonsillar hypertrophy exudate or other lesions. Bilateral TMs pearly [place] nonbulging NECK: Supple. No adenopathy or masses. No carotid bruits or JVD CHEST: Clear to auscultation. No respiratory distress. No wheezes rales or rhonchi HEART: Regular rate and rhythm. No murmur heard. Normal peripheral pulses. ABDOMEN: Soft, nontender, nondistended, normal active bowel sounds. EXTREMITIES: Normal range of motion. mild anterior knee swelling/ no obvious deformity / neurovascular intact / no open wounds or lesions NEURO: No focal deficits. Alert and oriented x3. PSYCH: Normal mood and affect. Course Course Level of Care: Express Care Visit Vital Signs Vital signs: Vital Signs Temperature 36.5 C 02/07/25 14:26 Pulse Rate 85 02/07/25 14:26 Respiratory Rate 16 02/07/25 14:26 Blood Pressure 127/56 L 02/07/25 14:26 Pulse Oximetry 98 02/07/25 14:26 Oxygen Delivery Room Air 02/07/25 14:26 Temperature 36.5 C 02/07/25 14:26 Pulse Rate 85 02/07/25 14:26 Respiratory Rate 16 02/07/25 14:26 Blood Pressure 127/56 L 02/07/25 14:26 Pulse Oximetry 98 02/07/25 14:26 Oxygen Delivery Room Air 02/07/25 14:26 Medical Decision Making MDM Narrative Medical decision making narrative: 79 y/o presents with acute right knee pain after a ground level mechanical fall yesterday. No head trauma no LOC No pain to hip / pelvis with palpation Pain with ambulation and flexion of right knee No obvious deformity noted, mild swelling to knee noted Concern for : Fracture/ contusion/ ligament injury plan to check an XR: unremarkable for acute findings Plan to wrap with carmelo wrap, SUERO therapy Close PCP follow up Return precautions Orthopedic referral if needed Medical Records Medical records reviewed: Yes I reviewed the external patient's medical records. Vital Signs Vital Signs: Vital Signs Temperature 36.5 C 02/07/25 14:26 Pulse Rate 85 02/07/25 14:26 Respiratory Rate 16 02/07/25 14:26 Blood Pressure 127/56 L 02/07/25 14:26 Pulse Oximetry 98 02/07/25 14:26 Oxygen Delivery Room Air 02/07/25 14:26 Temperature 36.5 C 02/07/25 14:26 Pulse Rate 85 02/07/25 14:26 Respiratory Rate 16 02/07/25 14:26 Blood Pressure 127/56 L 02/07/25 14:26 Pulse Oximetry 98 02/07/25 14:26 Oxygen Delivery Room Air 02/07/25 14:26 Vitals reviewed by pa Imaging Data Radiologist's impression: Impressions Knee X-Ray 02/07/25 15:13 Impression: Unremarkable right knee radiographs. Discharge Plan Discharge Clinical Impression: Acute knee pain Patient Disposition: Home Condition: Stable Instructions: Antibiotic Form Additional Instructions: Continue to keep knee wrapped Elevate and Ice your knee for comfort you may bear weight as tolerated Follow up with your PCP in 1 week to ensure this is improving IF you have continued pain you may follow up with orthopedics If you develop worsening symptoms/ increased pain/ swelling / unable to bear weight then proceed to the ER Patient Language: Tajik Prescriptions: No Action clobetasol 0.05 % cream 1 applic topical BID Qty: 60 0RF losartan-hydrochlorothiazide 50-12.5 mg tablet See Rx Instructions .ROUTE .COMPLEX Qty: 90 1RF Dose Instruction: TAKE 1 TABLET BY MOUTH DAILY Rx Instructions: TAKE 1 TABLET BY MOUTH DAILY alendronate 70 mg tablet See Rx Instructions .ROUTE .COMPLEX Qty: 12 2RF Dose Instruction: TAKE 1 TABLET BY MOUTH 1 TIME A WEEK DIRECTED Rx Instructions: TAKE 1 TABLET BY MOUTH 1 TIME A WEEK DIRECTED escitalopram oxalate 10 mg tablet See Rx Instructions .ROUTE .COMPLEX Qty: 90 1RF Dose Instruction: TAKE 1 TABLET BY MOUTH DAILY Rx Instructions: TAKE 1 TABLET BY MOUTH DAILY Trelegy Ellipta 100-62.5-25 mcg blister with device 1 inh inhalation DAILY Qty: 60 1RF metoprolol tartrate 25 mg tablet See Rx Instructions .ROUTE .COMPLEX Qty: 180 1RF Dose Instruction: TAKE 1 TABLET BY MOUTH TWICE DAILY Rx Instructions: TAKE 1 TABLET BY MOUTH TWICE DAILY levothyroxine 25 mcg tablet See Rx Instructions .ROUTE .COMPLEX Qty: 90 2RF Dose Instruction: TAKE 1 TABLET BY MOUTH DAILY Rx Instructions: TAKE 1 TABLET BY MOUTH DAILY fenofibrate 160 mg tablet 160 mg PO DAILY Qty: 90 0RF Follow-up/Referrals: Florentino Carrillo MD [Physician] - PHYSICIAN,SUPERVISOR [employer] [Primary Care Provider] - Time of Disposition: 15:18
== END 2025-02-07 15:23 | disposition home or self-care (01) ==
PROVIDERS: Emergency Provider Nurse Practitioner Family
DX: M25.561 Pain in right knee (principal); Z87.891 Personal history of nicotine dependence; E11.9 Type 2 diabetes mellitus without complications; E78.2 Mixed hyperlipidemia; E03.9 Hypothyroidism, unspecified; I10 Essential (primary) hypertension; M81.0 Age-related osteoporosis without current pathological fracture; I70.0 Atherosclerosis of aorta; F41.1 Generalized anxiety disorder
CPT/HCPCS: 73564; 99213; G0463

== ENCOUNTER 2025-03-08 16:01 | Outpatient (CLI) | payer MEDICARE, SELFPAY ==
--- OUTSIDE RECORDS SUMMARY | 2025-03-08 16:05 | XMS_ITS | Clinical Summary ---
Author Organization [facility] Address [address] [place] [id number] Care Team Providers Care Manager Lvn Name Role Phone Unavailable Primary Care Provider [...]
--- OUTSIDE RECORDS SUMMARY | 2025-03-08 16:05 | XMS_ITS | Continuity of Care Document ---
Author Organization [facility] Address [address] [place] [address] [place] [address] Phone Care Team Providers Care Transmission Calibration Engineer Name Role Phone Juma Glasgow Unavailable Unavailable Procedures Procedure Date Eye Exam, New Patient Ophthalmoscopy Advance Directives Directive Yes / No Effective Date File Name No Information Encounters Encounter Description Practice Location Reason(s) For Visit Diagnoses Date Provider Providers Copied on Encounter [facility], [address] [place] [address] [address], [place], [place], [id number], tel:[phone] [facility] No Information Pee Dennison. [address] [place], [address], [place]. tel:[phone] Referring Provider: Juma Frank, [address] [place], [place], [facility]. tel:[phone] Family History Family Member Type Diagnosis Age At Onset No Information Payers Payer name Insurance type Covered alliance party ID Authoriza tion(s) No Information Social [...]
[2025-03-08 18:13] LABS: Free T4 Free Thyroxine 0.43 ng/dL (0.78-2.19)
[2025-03-08 18:23] LABS: Thyroid Stimulating Hormone 11.200 uIU/mL (0.465-4.680)
== END 2025-03-08 16:02 | disposition home or self-care (01) ==
PROVIDERS: PCP Family Medicine; Visit Provider Student in an Organized Health Care Education/Training Program
DX: E03.9 Hypothyroidism, unspecified (principal)
CPT/HCPCS: 36415; 84439; 84443

== ENCOUNTER 2025-05-10 13:30 | Outpatient (CLI) | payer MEDICARE, SELFPAY ==
--- OUTSIDE RECORDS SUMMARY | 2008-12-04 08:15 | XMS_ITS | Continuity of Care Document ---
Author Organization [facility] Address [address] [place] [address] [place] [address] Phone Care Team Providers Care Wildland Fire Fighter Specialist Name Role Phone Juma Glasgow Unavailable Unavailable Procedures Procedure Date Eye Exam, New Patient Ophthalmoscopy Advance Directives Directive Yes / No Effective Date File Name No Information Encounters Encounter Description Practice Location Reason(s) For Visit Diagnoses Date Provider Providers Copied on Encounter [facility], [address] [place] [address] [address], [place], [place], [id number], tel:[phone] [facility] No Information Pee Dennison. [address] [place], [address], [place]. tel:[phone] Referring Provider: Juma Frank, [address] [place], [place], [facility]. tel:[phone] Family History Family Member Type Diagnosis Age At Onset No Information Payers Payer name Insurance type Covered green party ID Authoriza tion(s) No Information Social History Type Description Quantity Date Captured Comments Sex Female Smoking Status No Information Chief Complaint And Reason For Visit No Information Reason For Referral Reason For Referral No Information History Of Present Illness Encounter Date Complaint History Of Prese nt Illness No Information Functional Status Date Functional Assessmen t No Information Instructions Date Instruction Additional Infor mation No Information Assessments Type Assessment Date No Information Patient Care Teams Name Effective Dates (start - stop) Status Members No Information
--- OUTSIDE RECORDS SUMMARY | 2025-05-10 13:33 | XMS_ITS | Clinical Summary ---
Author Organization [facility] Address [address] [place] [id number] Care Team Providers Care Framing Manager Name Role Phone Unavailable Primary Care Provider [...] series) 12/03/2022 COVID-19 Vaccine (2023-2 5 season) 2025 Meningococcal B Vaccine Aged Out No l onger eligible based on patient's age to complete this topic Meningococcal Vaccine Aged Out No sanya rachel eligible based on patient's age to complete this topic RSV Immunizations Under 20 Months Aged Out No longer eligible based on patient's age to complete this topic
[2025-05-10 15:39] LABS: Free T4 Free Thyroxine 0.47 ng/dL (0.78-2.19)
[2025-05-10 16:09] LABS: Thyroid Stimulating Hormone > 100.000 uIU/mL (0.465-4.680)
== END 2025-05-10 13:31 | disposition home or self-care (01) ==
PROVIDERS: PCP Family Medicine; Visit Provider Student in an Organized Health Care Education/Training Program
DX: E03.9 Hypothyroidism, unspecified (principal)
CPT/HCPCS: 36415; 84439; 84443

== ENCOUNTER 2025-07-22 11:15 | Outpatient (CLI) | payer MEDICARE, SELFPAY ==
--- OUTSIDE RECORDS SUMMARY | 2025-07-22 11:20 | XMS_ITS | Clinical Summary ---
Author Organization [facility] Address [address] [place] [id number] Care Team Providers Care Cube Cutter Name Role Phone Unavailable Primary Care Provider [...] - 1-dose 75+ series) 12/03/2022 COVID-19 Vaccine (2024-2 6 season) 2025 Influenza Adult (#1) 2025 Hepatitis A Vaccines Aged Out No long er eligible based on patient's age to complete this topic Meningococcal B Vaccine Aged Out No l onger eligible based on patient's age to complete this topic Meningococcal Vaccine Aged Out No sanya rachel eligible based on patient's age to complete this topic RSV Immunizations Under 20 Months Aged Out No longer eligible based on patient's age to complete this topic
[2025-07-22 12:08] LABS: Free T3 2.24 pg/mL (2.45-5.93)
[2025-07-22 12:21] LABS: Thyroid Stimulating Hormone 42.200 uIU/mL (0.465-4.680)
[2025-07-22 16:57] LABS: Free T4 Free Thyroxine 0.84 ng/dL (0.78-2.19)
== END 2025-07-22 11:16 | disposition home or self-care (01) ==
PROVIDERS: PCP Family Medicine; Visit Provider Family Medicine
DX: E03.9 Hypothyroidism, unspecified (principal)
CPT/HCPCS: 36415; 84439; 84443; 84481